=== PATIENT | female | born 1950 | race Caucasian/White ===

== ENCOUNTER 2016-06-07 06:21 | Day surgery (SDC) | payer MEDICARE, MEDICAID ==
[~2016-06-07] VITALS: Ht 160 cm; Wt 56.0 kg
--- NOTE | 2016-06-22 10:14 | HP ---
ADMIT: 06/07/2016 RM/LOC: [facility] MR#: [id number] [address] [address] MIRELLA ANNE [address] [place] [id number] History and Physical SEX: F AGE: 65 : 1950 DATE OF SERVICE: HISTORY OF PRESENT ILLNESS: Ms. Anne is admitted at this time for direct esophagoscopy with dilation at cricopharyngeus in treatment of dysphagia with modified barium swallow identifying a prominent cricopharyngeal muscle level with narrowing of the esophagus at that level. She has significant neurological dysfunction including supranuclear palsy causing aphasia and Arnold-Chiari malformation. Physical examination shows no obstructive abnormalities pertaining to the oropharynx, hypopharynx, or larynx. 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 Her dysphagia has been present over several months' time and progressive. The rationale for the procedure was discussed with she and her daughter. The risks involved including risks of general anesthesia, risks of intubation, risks of esophageal injury or mucosal tear have been discussed. She is in good understanding and acceptance. She is admitted at this time for general anesthesia. MEDICATIONS: Prior to admission: 1. Cymbalta. 2. Prilosec. 3. Zetia. 4. Glucophage. 5. VESIcare. 6. Lisinopril. 7. Neurontin. 8. Senokot. 9. Vitamins. 10.Zocor. ALLERGIES: PENICILLIN, SULFA, LATEX. PAST MEDICAL HISTORY: Shoulder surgery. REVIEW OF SYSTEMS: Positive for progressive supranuclear palsy and history of adult onset diabetes. She has past history of stomach ulcers. SOCIAL HISTORY: Drinks caffeine in the form of soda. She does not drink alcohol, nor does she use tobacco. FAMILY HISTORY: No known anesthetic complications. PHYSICAL EXAMINATION: GENERAL: A 65-year-old, in no acute distress. She is cooperative, alert. HEENT: Pupils equal. Ear canals, TMs, and middle ears clear. Nose, airway patent. No mucus or purulence. Mouth and pharynx clear. No mucosal lesions. NECK: No palpable masses, adenopathy, thyromegaly, nodules, or asymmetry. ADMIT: 06/07/2016 RM/LOC: [facility] MR#: [id number] [address] [address] [place] [address] History and Physical SEX: F AGE: 65 : 1950 Fiberoptic visualization shows the nose, nasopharynx, hypopharynx, and larynx to be patent. No obstructive lesions. No ulcerations. No evidence of infection. LUNGS: Clear. HEART: Rhythm regular. EXTREMITIES: No edema. No cyanosis. IMPRESSION: 1. Cervical esophageal narrowing at cricopharyngeus, probable cricopharyngeal muscle spasm, hyperplasia, or stricture. 2. Arnold-Chiari malformation. 3. Supranuclear palsy. Hernán Hernandez MD/ miguel JOB #: [id number] CC: Hernán Hernandez, Attending Physician UNKNOWN, Family Physician
--- NOTE | 2016-07-24 09:02 | OR ---
ADMIT: 06/07/2016 RM/LOC: [facility] MR#: [id number] [address] [address] MIRELLA ANNE [address] [place] [id number] Operative/Delivery Room Report SEX: F AGE: 65 : 1950 SURGERY DATE: 06/07/2016 SURGEON: Hernán Hernandez MD PREOPERATIVE DIAGNOSIS: Dysphagia with cricopharyngeal muscle stricture. POSTOPERATIVE DIAGNOSIS: Dysphagia with cricopharyngeal muscle stricture. OPERATION: Direct esophagoscopy with CRE dilation to 20 mm and bougie dilation to 54-Estonian with total length of 60 cm. ANESTHESIA: General oral endotracheal. BLOOD LOSS: None. COMPLICATIONS: None. DESCRIPTION OF PROCEDURE: With the patient in supine position, general endotracheal anesthesia, the mouth, oropharynx, and cervical esophagus were examined with the Jesberg cervical esophagoscope. The cricopharyngeal entry was narrowed. There was no tumor mass, or stricture. It was tightened. Cricopharyngeus muscle predominantly as evidenced on exam. The CRE that balloon dilator was placed and expanded to full 20 mm, allowed to sit for 2 minutes and subsequently removed. Examination was then continued through the cricopharyngeus, which following dilation allowed esophagoscope to the full 30 cm length. No other lesions or esophageal mucosal abnormalities identified. The esophagoscope was retracted and the cricopharyngeus was again dilated to 20 mm allowed to sit for 2 minutes. Following this dilation, the Bougie dilator, 54-Estonian was placed. It advanced to the full 60 cm without restriction. There was no bleeding encountered during the procedure. She tolerated this very well. She emerged from general anesthesia in the operating room, was extubated in the operating room, and transferred to the recovery room in good condition. Hernán Hernandez MD/ miguel JOB #: [id number] CC: Hernán Hernandez MD, Attending Physician Pieter Barclay MD, Family Physician
== END 2016-06-07 12:50 | disposition home or self-care (01) ==
LOC: SSS 06:21
PROC: 0D718ZZ Dilation of Upper Esophagus, Via Natural or Artificial Opening Endoscopic (ICD-10-PCS; principal; 2016-06-07)
DX: J39.2 Other diseases of pharynx (principal); G23.1 Progressive supranuclear ophthalmoplegia [Steele-Richardson-Olszewski]; I10 Essential (primary) hypertension; F41.9 Anxiety disorder, unspecified; E11.9 Type 2 diabetes mellitus without complications; K21.9 Gastro-esophageal reflux disease without esophagitis; Z88.0 Allergy status to penicillin; Z88.2 Allergy status to sulfonamides; Z79.899 Other long term (current) drug therapy; Z90.710 Acquired absence of both cervix and uterus; Z90.49 Acquired absence of other specified parts of digestive tract